=== PATIENT | female | born 2000 | race Two or more races ===

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

== ENCOUNTER 2023-12-03 08:50 | Emergency (ER) | payer MEDICAID ==
[~2023-12-03] VITALS: Ht 160 cm; Wt 93.4 kg
[2023-12-03 08:59] VITALS: O2SAT 100
[2023-12-03] MEDS ORDERED: CYCL10TA21 MT (10:31)
[2023-12-03] MEDS ORDERED: IBUP-2029 MT (10:32)
[2023-12-03 11:24] VITALS: BP 113/66; PULSE 79; RESP 18; TEMP 37.05852; O2SAT 100
== END 2023-12-03 11:25 | disposition home or self-care (01) ==
LOC: ER 08:50
DX: M75.01 Adhesive capsulitis of right shoulder (principal)
CPT/HCPCS: 73030; 99283

== ENCOUNTER 2024-06-23 01:44 | Emergency (ER) | payer MEDICAID ==
[~2024-06-23] VITALS: Ht 160 cm; Wt 89.0 kg
[~2024-06-23 01:44] MED LIST: CYCL10TA21 MT; IBUP-2029 MT
[2024-06-23 01:59] VITALS: TEMP 37.1; O2SAT 99
[2024-06-23] MEDS: TETRACAINE 0.5% OPHTH DROPS 4ML RIGHTEYE ONE (02:18)
[2024-06-23] MEDS: FLUORESCEIN SODIUM 1MG/STRIP RIGHTEYE ONE (02:18)
[2024-06-23] MEDS ORDERED: ERYT1OIN6 RIGHTEYE (02:33)
[2024-06-23 02:45] VITALS: BP 113/69; PULSE 77; RESP 14; O2SAT 98
== END 2024-06-23 02:45 | disposition home or self-care (01) ==
LOC: ER 02:04
DX: H57.89 Other specified disorders of eye and adnexa (principal); Z79.899 Other long term (current) drug therapy
CPT/HCPCS: 99283

== ENCOUNTER 2025-02-02 06:29 | Emergency (ER) | payer MEDICAID ==
[~2025-02-02] VITALS: Ht 165.1 cm; Wt 93.0 kg
[~2025-02-02 06:29] MED LIST changes: +ERYT1OIN6 RIGHTEYE; +IBUP-1455 MT; -IBUP-2029 MT
[2025-02-02 06:31] VITALS: O2SAT 98
[2025-02-02] MEDS ORDERED: HYDR28OI2 TP (07:24)
[2025-02-02] MEDS ORDERED: CETI10TA11 MT (07:24)
[2025-02-02 07:25] VITALS: BP 133/66; PULSE 90; RESP 15; TEMP 36.7; O2SAT 99
== END 2025-02-02 07:25 | disposition home or self-care (01) ==
LOC: ER 06:29
DX: L29.9 Pruritus, unspecified (principal); Z79.899 Other long term (current) drug therapy
CPT/HCPCS: 99282